=== PATIENT | female | born 1950 | race Caucasian/White ===

== ENCOUNTER 2024-06-01 15:09 | Emergency (ER) | payer OTHER, SELFPAY ==
[2024-06-01 15:15] VITALS: BP 116/65
[2024-06-01 15:49] LABS: % Basophils 0.6 % (0-2); % Eosinophils 0.1 % (0-6); % Immature Granulocytes 0.4 % (0-0.5); % Lymphocytes 14.1 % (20.5-51.1); % Monocytes 9.1 % (1.7-9.3); % Neutrophils 75.7 % (42.2-75.2); Absolute Monocytes 0.7 10^3/uL (0.1-0.6); Absolute Neutrophils 5.4 10^3/uL (1.4-6.5); Hematocrit 41.1 % (37.0-47.0); Hemoglobin 13.4 g/dL (12.0-16.0); Mean Corp Hgb Conc. 32.6 g/dL (33.0-37.0); Mean Corpuscular Hgb 29.3 pg (27.0-31.0); Mean Corpuscular Volume 89.7 fL (81.0-99.0); Mean Platelet Volume 9.5 fL (7.4-10.4); Nucleated Red Blood Cells % 0 %; Platelet Count 202 10^3/uL (130-400); Red Blood Cell Count 4.58 10^6/uL (4.20-5.40); White Blood Cell Count 7.2 10^3/uL (4.8-10.8)
[2024-06-01 16:07] LABS: ALT (SGPT) 36 U/L (0-35); AST (SGOT) 87 U/L (14-36); Albumin 4.6 g/dl (3.5-5.0); Alkaline Phosphatase 58 U/L (38-126); Blood Urea Nitrogen 25 mg/dl (7-17); Calcium 9.1 mg/dl (8.4-10.2); Carbon Dioxide 27 mmol/L (22-30); Chloride 99 mmol/L (98-107); Glucose 126 mg/dl (70-99); Potassium 3.1 mmol/L (3.5-5.1); Sodium 136 mmol/L (135-145); Total Bilirubin 1.4 mg/dl (0.2-1.3); Total Protein 6.8 g/dl (6.3-8.2); eGFR 53.72
--- NOTE | 2024-06-01 19:49 | ED.GENMED ---
History of Present Illness
General
Chief Complaint: Change in Mental Status
Source: patient and spouse
Exam Limitations: none
Time Seen by Provider: 06/01/24 19:33
Nursing documentation reviewed up to this point in time: agreed with
History of Present Illness
History of Present Illness:
73-year-old female presents emergency department due to cough, episode of confusion. She feels normal at this time. She called her daughter, who works at [employer] and recommended she come to the emergency department to be evaluated for
these hallucinations. She is on a trial drug at [facility]. They called the physicians at [facility] and were told that the drug can cause hallucinations.
Past History
Past History
ED Past Medical History: Other (Mild cognitive disorder)
ED Past Surgical History: Gynecological (Salpingo-oophorectomy)
Social History
Tobacco: Non-smoker
Alcohol: None
Drug: None
Personal:
Living: with family
Review of Systems
Review of Systems
Allergies reviewed?: Yes
All Other Systems: Not applicable
Constitutional: Reports no symptoms
EENT: Reports no symptoms
Respiratory: Reports cough
Cardiac: Reports no symptoms
ABD/GI: Reports no symptoms
: Reports no symptoms
Musculoskeletal: Reports no symptoms
Skin: Reports no symptoms
Neurological: Reports other (Hallucinations)
Endocrine: Reports no symptoms
Hematologic/Lymphatic: Reports no symptoms
Psychiatric: Reports no symptoms
Phy Exam
Physical Exam
Physical Exam:
Physical Exam
General: no apparent distress, not acutely ill
Neck: supple. no meningeal signs. normal posterior pharynx
Heart: s1/s2 regular rate and rhythm, no murmur. equal radial
pulses.
HEENT: Pupils equal round reactive to light, EOMI
Lungs: no acute respiratory distress. clear bilaterally
Abdomen: normal bowel sounds. not tender. no CVAT
Neuro: alert and oriented. no focal neurological deficits cranial nerves II through XII intact
Skin: no rash
Psychiatric: well kept. interactive and cooperative
Extremities: no edema. no calf tenderness. negative homans. good distal pulses
Course
Orders/Labs/Results
Orders:
Orders
06/01/24 15:36
Complete Blood Count/With Diff Urgent
Comprehensive Metabolic Panel Urgent
Magnesium Urgent
06/01/24 19:46
CT Head W/o Iv Contrast Urgent
Comment:
Reason For Exam: hallucinations
06/01/24 19:47
CR Chest - 2 Views Urgent
Comment:
Reason For Exam: persistent cough
06/01/24 19:48
Add On- LAB Urgent
Tests Added?: magnesium
Potassium Chloride 10% Elixir [KCl Elixir] 40 meq PO NOW STA
06/01/24 20:03
COVID-19 Antigen Urgent
Source: Nasal Swab
Influenza A+B Rapid Molecular Urgent
ZEB Source: Nasal Swab
Specimen Description:
06/01/24 20:38
Urinalysis Reflex To Culture Urgent
Date Specimen was Collected: 06/01/24
Time Specimen was Collected: 15:22
Urine Microscopic Reflex Cult Urgent
Urine Culture Urgent
ZEB Source: U
Specimen Description:
Date Specimen was Collected: 06/01/24
Time Specimen was Collected: 15:22
06/01/24 21:55
Cephalexin Monohydrate [Keflex] 500 mg PO NOW STA
Oseltamivir Phosphate [Tamiflu] 75 mg PO NOW STA
Abnormal Lab Results
06/01/24 06/01/24
15:36 20:38
MCHC 32.6 L g/dL
(33.0-37.0)
RDW 15.0 H %
(11.5-14.5)
Absolute Lymphs (auto) 1.0 L 10^3/uL
(1.2-3.4)
Absolute Monos (auto) 0.7 H 10^3/uL
(0.1-0.6)
Neutrophils % 75.7 H %
(42.2-75.2)
Lymphocytes % 14.1 L %
(20.5-51.1)
Potassium 3.1 L mmol/L
(3.5-5.1)
BUN 25 H mg/dl
(7-17)
Creatinine 1.1 H mg/dL
(0.6-1.0)
Glucose 126 H mg/dl
(70-99)
Total Bilirubin 1.4 H mg/dl
(0.2-1.3)
AST 87 H U/L
(14-36)
ALT 36 H U/L
(0-35)
Ur Occult Blood Reflex 3+ A
(Negative)
Leukocyte Esterase Rfl 3+ A
(Negative)
Urine RBC 3-6 A /HPF
(0-2)
Urine WBC (Reflex) 80-90 A /HPF
(0-5)
Urine Bacteria (Reflex) Moderate A
(Negative)
Urine Albumin (Reflex) 2+ A
(Neg - Trace)
06/01/24 15:36
06/01/24 15:36
Vital Signs
Initial and Last Documented VS:
Initial Vital Signs
Temp Pulse Resp BP Pulse Ox
98.3 F 78 18 116/65 97
06/01/24 15:15 06/01/24 15:15 06/01/24 15:15 06/01/24 15:15 06/01/24 15:15
Last Documented Vital Signs
Temp Pulse Resp BP Pulse Ox
98.3 F 70 18 141/77 97
06/01/24 15:15 06/01/24 20:00 06/01/24 15:15 06/01/24 20:02 06/01/24 15:15
MDM/Problems Addressed
Differential Diagnosis Includes:
Intracranial hemorrhage, UTI, influenza, COVID
MDM/Problems Addressed:
73-year-old female with UTI and influenza. No signs of CVA. Ambulates without difficulty. Do not suspect DVT. Stable for discharge. Treat with Keflex and Tamiflu.
Chronic conditions affecting care: Other (Cognitive decline)
Acute Exacerbation and/or Progression of Chronic Illness: Other (Cognitive decline)
*Radiology
Radiology exam reviewed: preliminary read by ED provider (Chest x-ray no acute findings) and radiology read reviewed (CT head no acute findings)
*Pulse Oximetry
Patient hypoxic: no
*EKG
Interpreted by ED Provider?: NA
*[employer] Interpretation
Rate: normal
Interpretation: normal
Heart Rate: 70
Rhythm: sinus
*Critical Care Note
Total Time (30-74mins, 75-104mins- exclusive of procedures): Not Applicable
Patient Management
Social determinants of health affecting care: Living situation and Strong social support
Escalation/DeEscalation of care consider admission/obs:
Admit not indicated
ED Attending Note
-
Portions of this chart may have been created with voice recognition software.� Occasional wrong word or��sound alike� substitutions may have occurred due to the inherent limitations of voice recognition software.
Discharge Plan
Departure
Patient Disposition: Home (Routine Discharge)
Date of Disposition: 06/01/24
Time of Disposition: 22:06
Patient with high blood pressure during this ER visit?: Yes
Condition: Good
Covid-19: Negative COVID-19
Discharge Problem:
Influenza A, Acute UTI
Instructions: Urinary tract infections in adults, Flu in adults - Discharge instructions, BLOOD PRESSURE
Prescriptions:
New
oseltamivir [Tamiflu] 75 mg capsule
75 mg PO BID Qty: 9 0RF
cephalexin 500 mg capsule
500 mg PO BID 10 Days Qty: 20 0RF
Referrals:
Camilo Celis MD [Family Provider] -
Interventions
Interventions:
ED- Neurological Assessment Last Done: 06/01/24 20:04
ED Swallowing Screen Last Done: 06/01/24 19:57
Discharge Date and Time
Print Language: DIVEHI
[2024-06-01] MEDS: KCL ELIXIR 40 MEQ PO (19:54)
[2024-06-01 20:02] VITALS: BP 141/77
[2024-06-01 20:35] LABS: COVID-19 Antigen Negative (Negative)
[2024-06-01 20:49] LABS: Urine Albumin 2+ (Neg - Trace); Urine Bilirubin Negative (Negative); Urine Character Slightly Cloudy (Clear); Urine Color Yellow; Urine Glucose Negative (Negative); Urine Ketone Negative (Negative); Urine Leukocyte 3+ (Negative); Urine Nitrite Negative (Negative); Urine Occult Blood 3+ (Negative); Urine Specific Gravity 1.025 (<1.030); Urine Urobilinogen Negative (Neg - 1+)
[2024-06-01 20:57] LABS: Urine White Cell 80-90 /HPF (0-5)
[2024-06-01 20:59] LABS: Urine Bacteria Moderate (Negative)
[2024-06-01] MEDS: KEFLEX 500 MG PO (22:10)
[2024-06-01] MEDS: TAMIFLU 75 MG PO (22:10)
== END 2024-06-01 22:13 | disposition home or self-care (01) ==
LOC: EMR 15:09
PROVIDERS: Emergency Medicine; EMERGENCY PHYSICIAN Emergency Medicine; FAMILY PHYSICIAN Internal Medicine
DX: J10.1 Influenza due to other identified influenza virus with other respiratory manifestations (principal); N39.0 Urinary tract infection, site not specified; F09 Unspecified mental disorder due to known physiological condition; Z90.721 Acquired absence of ovaries, unilateral
CPT/HCPCS: 99284; 70450; 71046; 80053; 81003; 81015; 83735; 85025; 87086; 87502; 87811